=== PATIENT | male | born 1960 | race Caucasian/White ===

== ENCOUNTER 2016-12-13 15:38 | Emergency (ER) | payer BC ==
[2016-12-13 16:08] VITALS: BP 125/78; PULSE 80; O2SAT 99
--- NOTE | 2016-12-13 16:17 | ERPHSYRPT ---
- History of Present Illness Time Seen by Provider: 12/13/16 16:16 Source: patient Exam Limitations: no limitations Patient Subjective Stated Complaint: pt was lifting a chair up into a truck and it caught the tailgate of the truck at the dentist office and caught middle finger on the right hand causing a lacertaion. incident happend about 10 mins ago (1529) Triage Nursing Assessment: pt walked into the er. skin is pink warm and dry. respirations are even and unlabored. middle finger on right hand has an 'L' shaped laceration which is [id number]. Physician History: pt was lifting a chair up into a truck and it caught the tailgate of the truck at the dentist office and caught middle finger on the right hand causing a lacertaion. incident happend about 10 mins ago (1529) Occurred: just prior to arrival Allergies/Adverse Reactions: morphine Allergy (Verified 12/13/16 15:59) Home Medications: Aspirin 81 mg PO DAILY 12/13/16 [History] Buspirone HCl 7.5 mg PO DAILY 12/13/16 [History] Citalopram Hydrobromide [Citalopram HBr] 40 mg PO DAILY 12/13/16 [History] Omeprazole 20 MG [Prilosec 20 mg] 20 mg PO DAILY 12/13/16 [History] Prednisone 5 mg PO DAILY 12/13/16 [History] Hx Tetanus, Diphtheria Vaccination/Date Given: Yes (2016) Hx Influenza Vaccination/Date Given: No Hx Pneumococcal Vaccination/Date Given: No Immunizations Up to Date: Yes - Review of Systems Constitutional: No Symptoms Skin: Other (laceration on dorsum of right middle finger) - Past Medical History Pertinent Past Medical History: Yes Neurological History: No Pertinent History ENT History: No Pertinent History Cardiac History: No Pertinent History Respiratory History: No Pertinent History Endocrine Medical History: No Pertinent History Musculoskeletal History: Arthritis GI Medical History: Diverticulitis, Diverticulosis, GERD History: No Pertinent History Psycho-Social History: Anxiety, Depression Male Reproductive Disorders: No Pertinent History - Past Surgical History Past Surgical History: Yes Neuro Surgical History: No Pertinent History Cardiac: No Pertinent History Respiratory: No Pertinent History Gastrointestinal: No Pertinent History, Hernia Repair Genitourinary: No Pertinent History Musculoskeletal: Orthopedic Surgery Male Surgical History: No Pertinent History Other Surgical History: right wrist x 3, - Social History Smoking Status: Never smoker Exposure to second hand smoke: Yes Drug Use: none Patient Lives Alone: No - Nursing Vital Signs Nursing Vital Signs: Initial Vital Signs Temperature 98.0 F Temperature Source Oral Pulse Rate 80 Respiratory Rate 18 Blood Pressure [Left Arm] 125/78 Pain Intensity 5 - Physical Exam General Appearance: no apparent distress Hand Exam: laceration (1.5 cms long curvilinear flap ), soft tissue tenderness SpO2: 99 Oxygen Delivery: Room Air Procedures - Laceration/Wound Repair Right Finger Wound Location: Right (middle finger) Wound Length (cm): 1.5 Wound's Depth, Shape: superficial, flap Wound Explored: clean Irrigated: Yes Hibiclens Prep: Yes Anesthesia: local, 1% Lidocaine Volume Anesthetic (ccs): 3 Wound Debrided: minimal Wound Repaired With: sutures Suture Size/Type: 3-0, prolene Number of Sutures: 4 Layer Closure?: No Sterile Dressing Applied?: Yes Splint Applied?: Yes Type of Splint Applied: finger splint with tube gauge - Course Nursing assessment & vital signs reviewed: Yes - Progress Progress: improved Counseled pt/family regarding: diagnosis, need for follow-up (for suture removal in 10 days) - Departure Time of Disposition: 16:20 Departure Disposition: Home Clinical Impression: Laceration of finger of right hand without foreign body without damage to nail Qualifiers: Encounter type: initial encounter Finger: middle finger Qualified Code(s): S61.212A - Laceration without foreign body of right middle finger without damage to nail, initial encounter Condition: Stable Critical Care Time: No Instructions: Care for a Laceration After Repair, Laceration Repair -- Finger Additional Instructions: LACERATION CARE 1. Do not use peroxide, merthiolate, alcohol, or betadine. 2. Keep wound clean and dry. 3. Change dressing if it becomes wet or soiled. 4. If you must work, wear protective covering. 5. You may return to the emergency department or see your family physician for suture removal in 10 days 6. See your family physician or return to the emergency department for any of the following signs or symptoms: A. Redness B. Swelling C. Discolored drainage D. Red streaks E. Elevated temperature F. Other signs of infection
== END 2016-12-13 16:44 | disposition home or self-care (01) ==
LOC: ED 15:38
PROC: 0HQFXZZ Repair Right Hand Skin, External Approach (ICD-10-PCS; principal; 2016-12-13)
DX: S61.212A Laceration without foreign body of right middle finger without damage to nail, initial encounter (principal); W45.8XXA Other foreign body or object entering through skin, initial encounter
CPT/HCPCS: 12001; 99282; 99284